=== PATIENT | male | born 1945 | race African-American/Black ===

== ENCOUNTER 2016-09-26 05:49 | Inpatient (IN) ==
[2016-09-26] MEDS ORDERED: VANCOMYCIN INJ 1,000 MG in SODIUM CHLORIDE 0.9% 250 ML IV ONE (06:00)
[2016-09-26] MEDS ORDERED: ceFAZolin 1,000 MG VIAL ONE (06:05)
[2016-09-26] MEDS ORDERED: VANCOMYCIN 1,000 MG VIAL ONE (06:05)
[2016-09-26] MEDS ORDERED: SODIUM CHLORIDE 0.9% 100 ML IV ONE (06:06)
[2016-09-26] MEDS: LACTATED RINGERS 1,000 ML IV SCH ×2 (06:45→11:40)
[2016-09-26] MEDS ORDERED: DIAZEPAM 5 MG TABLET PO ONE (06:45)
[2016-09-26] MEDS ORDERED: FAMOTIDINE 20 MG TABLET PO ONE (06:45)
[2016-09-26] MEDS ORDERED: DIAZEPAM 5 MG TABLET ONE (06:54)
[2016-09-26] MEDS ORDERED: FAMOTIDINE 20 MG TABLET ONE (06:54)
--- NOTE | 2016-09-26 07:11 | History and Physical Update ---
History and Physical Update - History and Physical H&P was reviewed, the patient examined and there: are no changes in the patients condition since last H&P was completed.
[2016-09-26] MEDS ORDERED: ONDANSETRON 4 MG/2 ML VIAL IV PRN (07:15)
[2016-09-26] MEDS ORDERED: LACTULOSE 20 GM/30 ML UDCUP PO PRN (07:15)
[2016-09-26] MEDS ORDERED: TEMAZEPAM 7.5 MG CAPSULE PO PRN (07:15)
[2016-09-26] MEDS ORDERED: PROMETHAZINE 25 MG/1 ML VIAL IM PRN (07:15)
[2016-09-26] MEDS ORDERED: MAGNESIUM HYDROXIDE SUSP 30 ML UDCUP PO PRN (07:15)
[2016-09-26] MEDS ORDERED: HYDROmorphone 2 MG/1 ML VIAL IV PRN (07:15)
[2016-09-26] MEDS ORDERED: diphenhydrAMINE CAP 25 MG CAPSULE PO PRN (07:15)
[2016-09-26] MEDS ORDERED: NALOXONE 0.4 MG/ML VIAL IV PRN (07:15)
[2016-09-26] MEDS ORDERED: BISACODYL 10 MG SUPP RECTAL PRN (07:15)
[2016-09-26] MEDS ORDERED: traMADol 50 MG TABLET PO PRN (07:17)
[2016-09-26] MEDS ORDERED: GLUCAGON 1 MG VIAL IM PRN (07:18)
[2016-09-26] MEDS ORDERED: DEXTROSE 50% 25 GM/50 ML VIAL IV PRN (07:18)
[2016-09-26 09:27] LABS: Apearance,Urine CLEAR (Clear); Bilirubin,Urine Negative (Negative); Blood, Urine Negative (Negative); Glucose,Urine (UA) Negative (Negative); Ketones,Urine Negative (Negative); Mucus,Urine Occasional /LPF (Occasional); Nitrite,Urine Negative (Negative); Protein,Urine Negative; Urine Color Yellow (Yellow); Urine Specific Gravity 1.013 (1.001-1.035); Urine Urobilinogen < 2.0 EU/DL (0.2-1.0); WBC,Urine <1 /HPF (0-6)
[2016-09-26] MEDS ORDERED: MIDAZOLAM 2 MG/2 ML VIAL ONE (09:31)
[2016-09-26] MEDS ORDERED: fentaNYL 100 MCG/2 ML VIAL ONE (09:31)
[2016-09-26] MEDS ORDERED: ONDANSETRON 4 MG/2 ML VIAL ONE (09:31)
[2016-09-26] MEDS ORDERED: SEVOFLURANE 1 UNIT/15 MINUTE INH ONE (09:31)
[2016-09-26] MEDS ORDERED: PROPOFOL 200 MG/20 ML VIAL IV ONE (09:31)
[2016-09-26] MEDS ORDERED: ACETAMINOPHEN 1,000 MG/100 ML VIAL IV ONE (09:32)
[2016-09-26] MEDS ORDERED: GLYCOPYRROLATE 0.4 MG/2 ML VIAL ONE (09:32)
--- NOTE | 2016-09-26 09:41 | XRay Report ---
History is left hip replacement Patient is status post total left hip placement. There is resulting in gross anatomic alignment on this single view. Overlying drains present Impression: Status post left hip replacement PROCEDURE INTERPRETED AT [facility] DEPARTMENT OF RADIOLOGY Final Report Signed by: Dr. Luana Jeffrey
--- NOTE | 2016-09-26 10:23 | XRay Report ---
History is postop left hip replacement Patient is status post left hip replacement with overlying soft tissue raleigh and drains. There is resulting in gross anatomic alignment. Vascular calcifications present Impression: Status post left hip replacement PROCEDURE INTERPRETED AT [facility] DEPARTMENT OF RADIOLOGY Final Report Signed by: Dr. Luana Jeffrey
[2016-09-26] MEDS: INSULIN REGULAR 100 UNIT/ML SUBCUT SCH ×3 (11:02→21:32)
[2016-09-26] MEDS: GLIMEPIRIDE 2 MG TABLET PO SCH (11:02)
[2016-09-26] MEDS: DOCUSATE SODIUM 100 MG CAPSULE PO SCH ×2 (11:03→21:32)
[2016-09-26] MEDS: ALLOPURINOL 100 MG TABLET PO SCH (11:03)
[2016-09-26] MEDS: LISINOPRIL 20 MG TABLET PO SCH (11:03)
[2016-09-26] MEDS: GABAPENTIN 600 MG TABLET PO SCH ×3 (11:03→21:32)
[2016-09-26] MEDS: ATORVASTATIN 40 MG TABLET PO SCH (11:03)
[2016-09-26] MEDS: amLODIPine 10 MG TABLET PO SCH (11:03)
[2016-09-26] MEDS: CLOPIDOGREL 75 MG TABLET PO SCH (11:03)
[2016-09-26 11:05] LABS: Basophils % 0.1 % (0.0-0.8); Eosinophils % 0.2 % (0.00-10.9); Hematocrit 35.3 VOL% (42.0-52.0); Immature Granulocytes % 0.6 %; Immature Granulocytes Absolute 0.06 #; Lymphocytes # 0.6 10*3/uL (1.4-4.0); Lymphocytes % 5.9 % (21.2-54.2); Mean Corpuscular Hemoglobin 30 PG (27-34); Mean Corpuscular Volume 88.7 FL (87-102); Mean Platelet Volume 9.3 FL (9.6-12.0); Monocytes # 0.4 10*3/uL (0.11-0.8); Monocytes % 3.9 % (1.7-12.7); Neutrophils # 8.5 10*3/uL (1.4-7.4); Neutrophils % 89.3 % (38.7-73.9); Platelet Count 203 T/CUMM (130-400); Red Blood Count 3.98 MC/CUMM (3.8-5.5); Red Cell Distribution Width 12.1 % (9.3-17.3); White Blood Count 9.5 T/CUMM (4-12)
[2016-09-26 11:25] LABS: Calcium 8.9 MG/DL (8.5-10.1); Osmolality,Calculated 284.3 MOS/KG (273-304)
[2016-09-26 11:29] LABS: Band Neutrophils 3 % (0-10); Eosinophils 1 % (0-10); Hypochromasia 1+; Lymphocytes 4 % (20-55); Ovalocytes Slight; Platelet Estimate Normal; Segmented Neutrophils 89 % (50-85); Total Cells Counted 100
[2016-09-26] MEDS: ceFAZolin 2,000 MG in PREMIX 1 EACH IV SCH ×2 (11:40→18:42)
[2016-09-26] MEDS: HYDROmorphone PCA 30 MG/30 ML SYRINGE IV SCH (11:40)
--- NOTE | 2016-09-26 13:18 | Orthopedic Progress Note ---
Orthopedics - Subjective Interval history: comfortable nvi discussed Exam - Constitutional Vitals: Period Temp Pulse Resp BP Sys/Benavides Pulse Ox Last 24 Hr 97.0 F-98.3 F 88-103 16-22 109-157/68-82 95-100 Results - Labs CBC & BMP: 09/26/16 10:42 09/26/16 10:42
--- NOTE | 2016-09-26 15:17 | Pulmonology Progress Note ---
Pulmonary - PN: Subj Interval history: Patient is a 71-year-old black man that has a history of having hypertension, diabetes, mild renal insufficiency and possibly a CVA in the past. He has severe arthritis and came in today for a left hip replacement. He has done well with surgery and not having any problems with anesthesia. He says he is sore but doing better. He is not having any chest pain or shortness of breath or other problems. He apparently did fairly well with his surgery today. Exam (Progress Note) - Constitutional Vitals: Period Temp Pulse Resp BP Sys/Benavides Pulse Ox Last 24 Hr 97.0 F-98.3 F 85-103 16-22 109-157/68-87 92-100 General appearance: normal weight, no acute distress - Head Head exam: Present: normal inspection, normocephalic - Eye Eye exam: Present: EOMI. Absent: scleral icterus Pupils: Present: MARTHA - ENT ENT exam: Present: normal exam - Neck Neck exam: Present: normal inspection. Absent: lymphadenopathy, thyromegaly - Respiratory Respiratory exam: Present: clear to auscultation bilaterally. Absent: wheezes - Cardiovascular Cardiovascular exam: Present: regular rate and rhythm. Absent: gallop, systolic murmur - GI/Abdominal GI/Abdominal exam: Present: soft. Absent: distended, organomegaly, tenderness - Extremities Exam Extremities exam: Present: other (Left hip is splinted). Absent: calf tenderness, edema - Neurological Exam Neurological exam: Present: alert, oriented X3, CN II-XII intact - Psychiatric Psychiatric exam: Present: normal affect, normal mood - Skin Skin exam: Present: warm, dry Results - Labs CBC & BMP: 09/26/16 10:42 09/26/16 10:42 Assessment and Plan (1) Degenerative arthritis Status: Acute Assessment and plan: Patient has significant arthritis and has been having trouble getting around. He now comes in for left hip replacement. Current Visit: Yes (2) Status post total hip replacement, left Status: Acute Assessment and plan: The patient has surgery today and is doing well postop Current Visit: Yes (3) Diabetes Status: Acute Assessment and plan: His glucose is 148 today. Current Visit: Yes (4) Hypertension Status: Acute Assessment and plan: His blood pressure heart rate will be monitored and he appears stable at present. Current Visit: Yes
[2016-09-26] MEDS: FONDAPARINUX 2.5 MG/0.5 ML SYRINGE SUBCUT SCH (17:36)
[2016-09-27] MEDS ORDERED: BACLOFEN 20 MG TABLET PO PRN (01:51)
[2016-09-27] MEDS: LACTATED RINGERS 1,000 ML IV SCH ×2 (03:48→22:56)
[2016-09-27 07:25] LABS: Basophils % 0.1 % (0.0-0.8); Eosinophils # 0.1 10*3/uL (0.0-0.87); Eosinophils % 0.7 % (0.00-10.9); Hematocrit 30.7 VOL% (42.0-52.0); Hemoglobin 10.3 GM/DL (14.0-18.0); Immature Granulocytes % 0.8 %; Immature Granulocytes Absolute 0.06 #; Lymphocytes # 0.6 10*3/uL (1.4-4.0); Lymphocytes % 8.6 % (21.2-54.2); Mean Corpuscular HGB Conc 33.6 GM/DL (32-36); Mean Corpuscular Hemoglobin 30 PG (27-34); Mean Corpuscular Volume 89.5 FL (87-102); Mean Platelet Volume 9.3 FL (9.6-12.0); Monocytes # 0.8 10*3/uL (0.11-0.8); Neutrophils # 5.9 10*3/uL (1.4-7.4); Neutrophils % 78.8 % (38.7-73.9); Platelet Count 187 T/CUMM (130-400); Red Blood Count 3.43 MC/CUMM (3.8-5.5); Red Cell Distribution Width 12.2 % (9.3-17.3); White Blood Count 7.5 T/CUMM (4-12)
[2016-09-27 07:47] LABS: Band Neutrophils 4 % (0-10); Hypochromasia Slight; Lymphocytes 7 % (20-55); Microcytosis 1+; Platelet Estimate Adequate; Polychromasia Slight; Segmented Neutrophils 86 % (50-85); Total Cells Counted 100
[2016-09-27 07:55] LABS: Calcium 8.5 MG/DL (8.5-10.1); Osmolality,Calculated 279.5 MOS/KG (273-304); Potassium 4.2 MMOL/L (3.5-5.1)
[2016-09-27] MEDS: INSULIN REGULAR 100 UNIT/ML SUBCUT SCH ×4 (08:11→21:57)
--- NOTE | 2016-09-27 08:31 | Pulmonology Progress Note ---
Pulmonary - PN: Subj Interval history: Patient is a 71-year-old black man that has a history of having hypertension, diabetes, mild renal insufficiency and possibly a CVA in the past. He has severe arthritis and came in for a left hip replacement. He has done fairly well through the night although he is uncomfortable lying in the bed. He does want to try to get up fairly soon. His hip pain is doing a little better. He is eating some and not have any trouble with his breathing. Hopefully can start physical therapy soon. Exam (Progress Note) - Constitutional Vitals: Period Temp Pulse Resp BP Sys/Benavides Pulse Ox Last 24 Hr 97.0 F-98.2 F 83-94 16-21 109-145/56-87 92-100 Exam: General appearance: normal weight, no acute distress, he is doing fairly well lying in bed. - Head Head exam: Present: normal inspection, normocephalic - Eye Eye exam: Present: EOMI. Absent: scleral icterus Pupils: Present: MARTHA - ENT ENT exam: Present: normal exam - Neck Neck exam: Present: normal inspection. Absent: lymphadenopathy, thyromegaly - Respiratory Respiratory exam: Present: clear to auscultation bilaterally. Absent: wheezes - Cardiovascular Cardiovascular exam: Present: regular rate and rhythm. Absent: gallop, systolic murmur - GI/Abdominal GI/Abdominal exam: Present: soft. Absent: distended, organomegaly, tenderness - Extremities Exam Extremities exam: Present: other (Left hip is splinted). He still has the drains in place. Absent: calf tenderness, edema - Neurological Exam Neurological exam: Present: alert, oriented X3, CN II-XII intact - Psychiatric Psychiatric exam: Present: normal affect, normal mood - Skin Skin exam: Present: warm, dry Results - Labs CBC & BMP: 09/27/16 07:01 09/27/16 07:01 Assessment and Plan (1) Degenerative arthritis Status: Acute Assessment and plan: Patient has significant arthritis and has been having trouble getting around. He now comes in for left hip replacement. Current Visit: Yes (2) Status post total hip replacement, left Status: Acute Assessment and plan: The patient has surgery on his left hip and is doing well now. Hopefully can start physical therapy soon. Current Visit: Yes (3) Diabetes Status: Acute Assessment and plan: His glucose is 109 today. Current Visit: Yes (4) Hypertension Status: Acute Assessment and plan: His blood pressure and heart rate have been stable and he is doing well medically. Current Visit: Yes
--- NOTE | 2016-09-27 08:55 | Orthopedic Progress Note ---
Orthopedics - Subjective Interval history: Comfortable neurovascular intact drain removed start PT Exam - Constitutional Vitals: Period Temp Pulse Resp BP Sys/Benavides Pulse Ox Last 24 Hr 97.0 F-98.2 F 83-94 16-21 109-145/56-87 92-100 Results - Labs CBC & BMP: 09/27/16 07:01 09/27/16 07:01
[2016-09-27] MEDS: amLODIPine 10 MG TABLET PO SCH (09:41)
[2016-09-27] MEDS: CLOPIDOGREL 75 MG TABLET PO SCH (09:41)
[2016-09-27] MEDS: LISINOPRIL 20 MG TABLET PO SCH (09:41)
[2016-09-27] MEDS: ALLOPURINOL 100 MG TABLET PO SCH (09:42)
[2016-09-27] MEDS: ATORVASTATIN 40 MG TABLET PO SCH (09:42)
[2016-09-27] MEDS: GABAPENTIN 600 MG TABLET PO SCH ×3 (09:42→21:58)
[2016-09-27] MEDS: DOCUSATE SODIUM 100 MG CAPSULE PO SCH ×2 (09:42→21:58)
[2016-09-27] MEDS: GLIMEPIRIDE 2 MG TABLET PO SCH (09:42)
--- NOTE | 2016-09-27 09:58 | Anesthesia Post-Op ---
Anesthesia Post OP - Post Ansesthetic Evaluation Patient seen in post op: Yes Resp: within normal limits CV: within normal limits Mental: within normal limits Temp: within normal limits [id number]: within normal limits Nausea and Vomiting: within normal limits Pain: within normal limits Patient seen at: date
--- NOTE | 2016-09-27 11:16 | Pathology Report from [facility] ---
[facility] ACCESSION # : [id number] PATIENT NAME : Lam Price ORDERING DR : YAMILKA HENAO JR, MD CLINICAL HX: LT hip osteoarthritis POST-OP DX: Same SPECIMEN INFO: LT hip bone & tissue GROSS DESCRIPTION: The specimen is received in formalin labeled with the patients name and consists of a femoral head measuring 10.8 x 5.2 x 2.5 cm with an area of subchondral eburnation seen measuring 3.0 x 2.0 cm. Cut surfaces are smooth with no softening appreciated. Received separately in the container are multiple fragments of hemorrhagic soft tissue and bone measuring 10.0 x 4.0 cm in aggregate. 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 DIAGNOSIS FOR LAM PRICE: LEFT HIP BONE & TISSUE, TOTAL REPLACEMENT: Osteoarthritis. COLLECTED DATE: 09/26/2016 [facility] [place] REPORT DATE: 09/27/2016 ELECTRONICALLY SIGNED BY: Ross Uribe M.D. 09/27/2016 - 9:10:19 [facility]
[2016-09-27] MEDS: HYDROmorphone PCA 30 MG/30 ML SYRINGE IV SCH (11:25)
[2016-09-27] MEDS: FONDAPARINUX 2.5 MG/0.5 ML SYRINGE SUBCUT SCH (17:46)
[2016-09-28 06:47] LABS: Basophils % 0.2 % (0.0-0.8); Eosinophils # 0.1 10*3/uL (0.0-0.87); Eosinophils % 0.9 % (0.00-10.9); Hematocrit 30.2 VOL% (42.0-52.0); Hemoglobin 9.8 GM/DL (14.0-18.0); Immature Granulocytes % 0.5 %; Immature Granulocytes Absolute 0.04 #; Lymphocytes # 1.1 10*3/uL (1.4-4.0); Lymphocytes % 12.9 % (21.2-54.2); Mean Corpuscular HGB Conc 32.5 GM/DL (32-36); Mean Corpuscular Hemoglobin 29 PG (27-34); Mean Corpuscular Volume 90.1 FL (87-102); Mean Platelet Volume 9.5 FL (9.6-12.0); Monocytes # 0.8 10*3/uL (0.11-0.8); Monocytes % 9.6 % (1.7-12.7); Neutrophils # 6.5 10*3/uL (1.4-7.4); Neutrophils % 75.9 % (38.7-73.9); Platelet Count 188 T/CUMM (130-400); Red Blood Count 3.35 MC/CUMM (3.8-5.5); Red Cell Distribution Width 12.5 % (9.3-17.3); White Blood Count 8.6 T/CUMM (4-12)
[2016-09-28] MEDS: INSULIN REGULAR 100 UNIT/ML SUBCUT SCH ×4 (07:30→21:14)
--- NOTE | 2016-09-28 08:11 | Pulmonology Progress Note ---
Pulmonary - PN: Subj Interval history: Patient is a 71-year-old black man that has a history of having hypertension, diabetes, mild renal insufficiency and possibly a CVA in the past. He has severe arthritis and came in for a left hip replacement. He did get up and move around some yesterday and is feeling better. He still has considerable pain but is improved. He is not having any shortness of breath or chest pain or other problems. Exam (Progress Note) - Constitutional Vitals: Period Temp Pulse Resp BP Sys/Benavides Pulse Ox Last 24 Hr 97.9 F-100.3 F 84-104 18-20 123-149/59-70 92-99 Exam: General appearance: normal weight, no acute distress, he is doing fairly well lying in bed. He did move around some yesterday. - Head Head exam: Present: normal inspection, normocephalic - Eye Eye exam: Present: EOMI. Absent: scleral icterus Pupils: Present: MARTHA - ENT ENT exam: Present: normal exam - Neck Neck exam: Present: normal inspection. Absent: lymphadenopathy, thyromegaly - Respiratory Respiratory exam: Present: clear to auscultation bilaterally. Absent: wheezes - Cardiovascular Cardiovascular exam: Present: regular rate and rhythm. Absent: gallop, systolic murmur - GI/Abdominal GI/Abdominal exam: Present: soft. Absent: distended, organomegaly, tenderness - Extremities Exam Extremities exam: Present: other (Left hip is splinted). His leg swelling is better and he has no calf tenderness. - Neurological Exam Neurological exam: Present: alert, oriented X3, CN II-XII intact - Psychiatric Psychiatric exam: Present: normal affect, normal mood - Skin Skin exam: Present: warm, dry Results - Labs CBC & BMP: 09/28/16 05:18 09/27/16 07:01 Assessment and Plan (1) Degenerative arthritis Status: Acute Assessment and plan: Patient has significant arthritis and has been having trouble getting around. He now comes in for left hip replacement. He is doing well postop. Current Visit: Yes (2) Status post total hip replacement, left Status: Acute Assessment and plan: The patient has surgery on his left hip and is doing well now. He did start physical therapy and set up yesterday. He is feeling a little better today. Current Visit: Yes (3) Diabetes Status: Acute Assessment and plan: His glucose is 135 today. Current Visit: Yes (4) Hypertension Status: Acute Assessment and plan: His blood pressure and heart rate have been stable and he is doing well medically. Current Visit: Yes
--- NOTE | 2016-09-28 09:28 | Orthopedic Progress Note ---
Orthopedics - Subjective Interval history: Mobilizing better H&H stable we will stop BREAK OUT MAN continue PT swing bed placement comfortable H&H stable Exam - Constitutional Vitals: Period Temp Pulse Resp BP Sys/Benavides Pulse Ox Last 24 Hr 97.9 F-100.3 F 84-104 18-20 123-149/59-70 92-99 Results - Labs CBC & BMP: 09/28/16 05:18 09/27/16 07:01
[2016-09-28] MEDS: DOCUSATE SODIUM 100 MG CAPSULE PO SCH ×2 (09:33→21:14)
[2016-09-28] MEDS: GABAPENTIN 600 MG TABLET PO SCH ×3 (09:33→21:14)
[2016-09-28] MEDS: GLIMEPIRIDE 2 MG TABLET PO SCH (09:33)
[2016-09-28] MEDS: ATORVASTATIN 40 MG TABLET PO SCH (09:33)
[2016-09-28] MEDS: LISINOPRIL 20 MG TABLET PO SCH (09:34)
[2016-09-28] MEDS: CLOPIDOGREL 75 MG TABLET PO SCH (09:34)
[2016-09-28] MEDS: ALLOPURINOL 100 MG TABLET PO SCH (09:34)
[2016-09-28] MEDS: amLODIPine 10 MG TABLET PO SCH (09:34)
[2016-09-28] MEDS: FONDAPARINUX 2.5 MG/0.5 ML SYRINGE SUBCUT SCH (19:43)
--- NOTE | 2016-09-29 08:44 | Orthopedic Progress Note ---
Orthopedics - Subjective Interval history: Hemoglobin stable at 10 mobilizing better on each day ready for rehab placement instructed Exam - Constitutional Vitals: Period Temp Pulse Resp BP Sys/Benavides Pulse Ox Last 24 Hr 97.0 F-100.1 F 78-110 18-22 116-143/61-73 94-97 Results - Labs CBC & BMP: 09/28/16 05:18 09/27/16 07:01 Specialty Discharge - Follow Up or Referrals Follow up with: Yamil Shah Jr., MD [Physician] -
--- NOTE | 2016-09-29 08:47 | Discharge Summary ---
Hospital Course - Hospital Course Hospital Course: Noted for elective total hip left discharged to rehab Specialty Discharge - Follow Up or Referrals Follow up with: Yamil Shah Jr., MD [Physician] - Discharge Plan - Discharge Data Disposition: Disch/Xfer-Ip Rehab Fac Condition at Discharge: Stable Discharge Diet: advance to your usual diet Activity: ambulate only with your walker, as per physical therapy, increase activity as tolerated Hygiene: may shower, keep area(s) dry Weight Bearing at Discharge: weight bear as tolerated - Discharge Medications New Fondaparinux [Arixtra] 2.5 mg SUBCUT Q24H syringe HYDROcodone/ACETAMIN 7.5-325 [[place] 7.5-325] 1 tablet PO Q4H PRN #30 tablet PRN Reason: Pain Moderate (4-7) Continue Gabapentin Cap/Tab [Neurontin Cap/Tab] 600 mg PO TID Allopurinol 100 mg PO DAILY Clopidogrel Bisulfate [Clopidogrel] 75 mg PO DAILY Atorvastatin [Lipitor] 40 mg PO DAILY Amlodipine Besylate 10 mg PO DAILY Lisinopril 40 mg PO DAILY Glimepiride 2 mg PO DAILY Baclofen 20 mg PO QID PRN PRN Reason: Muscle Spasm Tramadol HCl [Tramadol Tab] 50 mg PO Q6H PRN PRN Reason: Pain - Follow Up or Referral Follow Up: Yamil Shah Jr., MD [Physician] - - Forms/Instructions [facility]: [facility] [place] for pain Arixtra 10 more days and aspirin upon discharge raleigh to be removed October 10 and wound Steri-Stripped follow-up 4 weeks Exam - Constitutional Vitals: Period Temp Pulse Resp BP Sys/Benavides Pulse Ox Last 24 Hr 97.0 F-100.1 F 78-110 18-22 116-143/61-73 94-97 Discharge Results Labs on day of discharge: Labs from last 24 hours 09/29/16 09/28/16 09/28/16 06:58 20:28 17:08 POC Glucose 142 H 169 H 119 H 09/28/16 11:10 POC Glucose 150 H DS: Provider Date of admission: 09/26/16 05:49 Primary care physician: Jesu Gil MD Attending physician on admission: Yamil Shah Jr., MD Consults: 09/26/16 07:15 Consult to Case Mgmt/Social Srvs [CONS] Routine Reason for Case Mgmt/Social Srvs: Rehab Home Health Equipment Consult Comment: Bedside Commode, CPM, Walker Consult to Occupational Therapy [CONS] Routine Reason for Occupational Therapy: Evaluate and Treat Consult Comment: ADL's Consult to Physical Therapy [CONS] Routine Reason for Physical Therapy: Evaluate and Treat Gait Training 09/26/16 07:17 Consult to Physician [CONS] Routine Comment: Consulting Provider: Naif Bradford Consulting Provider Notified: Yes When should Consulting Provider be notified: Now Person Notified: ashtyn nevarez Date Notified: 09/26/16 Time Notified: 11:31 Discharging clinician: Yamil Shah Jr., MD
[2016-09-29] MEDS: INSULIN REGULAR 100 UNIT/ML SUBCUT SCH ×2 (08:49→11:59)
[2016-09-29] MEDS: GLIMEPIRIDE 2 MG TABLET PO SCH (08:50)
[2016-09-29] MEDS: DOCUSATE SODIUM 100 MG CAPSULE PO SCH (08:51)
[2016-09-29] MEDS: LISINOPRIL 20 MG TABLET PO SCH (08:51)
[2016-09-29] MEDS: CLOPIDOGREL 75 MG TABLET PO SCH (08:51)
[2016-09-29] MEDS: amLODIPine 10 MG TABLET PO SCH (08:51)
[2016-09-29] MEDS: ATORVASTATIN 40 MG TABLET PO SCH (08:51)
[2016-09-29] MEDS: GABAPENTIN 600 MG TABLET PO SCH (08:51)
[2016-09-29] MEDS: ALLOPURINOL 100 MG TABLET PO SCH (08:51)
[2016-09-29 11:32] VITALS: BP 131/66
--- NOTE | 2016-09-29 12:10 | Pulmonology Progress Note ---
Pulmonary - PN: Subj Interval history: Patient is a 71-year-old black man that has a history of having hypertension, diabetes, mild renal insufficiency and possibly a CVA in the past. He has severe arthritis and came in for a left hip replacement. He is feeling better today although he still has some trouble getting around. He is having less pain and is doing his therapy reasonably well. He has not had any new problems at all. He is probably going to rehab soon. Exam (Progress Note) - Constitutional Vitals: Period Temp Pulse Resp BP Sys/Benavides Pulse Ox Last 24 Hr 98.4 F-100.1 F 78-110 18-22 130-143/61-73 94-97 Exam: General appearance: normal weight, no acute distress, he is sitting up and looks comfortable. - Head Head exam: Present: normal inspection, normocephalic - Eye Eye exam: Present: EOMI. Absent: scleral icterus Pupils: Present: MARTHA - ENT ENT exam: Present: normal exam - Neck Neck exam: Present: normal inspection. Absent: lymphadenopathy, thyromegaly - Respiratory Respiratory exam: Present: clear to auscultation bilaterally. He is moving air well without any rales or wheezing. - Cardiovascular Cardiovascular exam: Present: regular rate and rhythm. Absent: gallop, systolic murmur - GI/Abdominal GI/Abdominal exam: Present: soft. Absent: distended, organomegaly, tenderness - Extremities Exam Extremities exam: Present: other (Left hip is splinted). His leg swelling is better and he has no calf tenderness. - Neurological Exam Neurological exam: Present: alert, oriented X3, CN II-XII intact - Psychiatric Psychiatric exam: Present: normal affect, normal mood - Skin Skin exam: Present: warm, dry Results - Labs CBC & BMP: 09/28/16 05:18 09/27/16 07:01 Assessment and Plan (1) Degenerative arthritis Status: Acute Assessment and plan: Patient has significant arthritis and has been having trouble getting around. He now comes in for left hip replacement. He is doing well postop. He is doing more activity now. Current Visit: Yes (2) Status post total hip replacement, left Status: Acute Assessment and plan: The patient has surgery on his left hip and is doing well now. His pain is getting better and is doing more activity. He will probably go to a swing bed Current Visit: Yes (3) Diabetes Status: Acute Assessment and plan: His glucose is 112 today. Current Visit: Yes (4) Hypertension Status: Acute Assessment and plan: His blood pressure and heart rate have been stable and he is doing well medically. He does not have any problems with his breathing and no chest pain or other problems Current Visit: Yes Specialty Discharge - Follow Up or Referrals Follow up with: Yamil Shah Jr., MD [Physician] - 10/27/16 8:45 am
--- NOTE | 2016-10-03 15:24 | Operative Note ---
DATE OF SURGERY: 09/26/2016 PREOPERATIVE DIAGNOSIS: OSTEOARTHRITIS, LEFT HIP. POSTOPERATIVE DIAGNOSIS: SAME. OPERATIVE PROCEDURE: LEFT TOTAL HIP (S-ROM). SURGEON: Yamli Shah Jr., MD PRETZEL COOKER: Dr. Torres. ANESTHESIA: Spinal converted to general. INDICATIONS: A 71-year-old black male with severe osteoarthritis to his left hip. He has maximized conservative treatment through the years and had been recently evaluated and presented with treatment options. Due to his inability to ambulate and stand for any length of time as well as the significant pain without severe limitations, he presents today for elective left total hip. OPERATIVE PROCEDURE: The patient was taken to the operating room and under spinal converted into general anesthesia, he was positioned in the right lateral decubitus position, the left hip and lower extremity were prepped and draped in a usual sterile manner. He received vancomycin and Ancef preoperatively. A curvilinear incision was made over the posterolateral aspect of the left hip. Sharp dissection was carried down through the skin and subcutaneous tissue. The IT band and gluteus were split. The hip internally rotated, and the short rotator and capsule were reflected off the back of the proximal femur. The head was dislocated and resected, sequentially reamed the acetabulum after exposure up to a 53 and a 54 cup was press-fit in place, secured with single screw, and a 10-degree all-polyethylene liner placed. The proximal femur was then prepared for the S-ROM component, sequentially remaining up to 11.5. The appropriate size collar was trialed as well as the S- ROM stem. Trial reduction selecting a 0 head, after removal of the trial components, the permanent S-ROM components were inserted as well and another trial reduction again selecting a 0 head. The hip was dislocated a final time. The 0 head secured on the femoral taper and the hip relocated. It was then irrigated, intraoperative film confirming satisfactory alignment position of these components. The wound was closed in the standard fashion over two 1/8th- inch Hemovac drains using #1 Vicryl for the posterior capsule and IT band layer , 2-0 Vicryl for the subcutaneous layer, and raleigh for skin. Sterile dressings applied, abduction pillow placed, he was rolled supine and taken to the recovery room in stable condition. ESTIMATED BLOOD LOSS: 100 mL. COUNTS: Correct. MTDD
== END 2016-09-29 12:30 | DRG 470 ==
LOC: N.SDSINP 05:49 → N.3E 09:13
PROVIDERS: ADMIT Orthopaedic Surgery; ATTEND Orthopaedic Surgery